=== PATIENT | female | born 1980 | race Asian ===

== ENCOUNTER 2018-04-04 10:22 | Inpatient (IN) | payer OTHER ==
--- NOTE | 2018-04-04 10:48 | HP ---
General Information - General Information Maternal Age: 37 Grav: 5 Para: 4 SAB: 0 IEA: 0 Estimated Due Date: 03/30/18 Determined By: Early Ultrasound - 2nd trimester Gestational Age in Weeks/Days: 40 w 5 d Maternal Blood Type and Rh: A Positive - Results this Serology/RPR Result: Non-Reactive Rubella Result: Immune HBsAg Result: Negative HIV Result: Negative GBS Culture Result: Positive - bacteruiria Past Medical History Delivery History: Hx Uncomplicated Vaginal Delivery Past Medical History Comment: varicose veins Pertinent Past Surgical History: None Pertinent Family History: Non-Contributory - Antepartal Records Antepartal Records: Reviewed, Complicated by: - advanced maternal age , GBS bacteriuria Review of Systems Constitutional: Uncomfortable CV Complaint: No Respiratory: Shortness of Breath: No Gastrointestinal: No Nausea/Vomiting Genitourinary: No Leaking Fluid Musculoskeletal: Contractions Neurological: No Headache, No Visual Changes Movement: Normal Exam Allergies/Adverse Reactions: Allergies No Known Allergies Allergy (Verified 04/04/18 09:56) - Measurements Height: 5 ft 4 in Weight: 162 lb Body Mass Index (BMI): 27.8 Pre- Weight: 134 lb - Exam Breast: - - soft, no masses Extremities: Edema - varciosities Heart: Normal Rhythm/Heart Sounds HEENT: No Significant Findings Reflexes: DTR 2+ Thyroid: No Thyromegaly Other Exam Findings: extensive R labial varicosity. Large abd diastasis - Abdominal Exam Abdomen Exam: Non-Tender - Ultrasound/Biophysical Profile Ultrasound Status: Not Done Targeted Exam Findings Estimated Weight: 8 lbs Cervical Exam: 8cm Effacement: 100% Presenting Part: Vertex Membrane Status: Bulging Bleeding/Discharge: None EFM Findings - External Monitor Findings Baseline Heart Rate: 130 External Monitor Findings: Accelerations Present, No Pattern of Variable or Late Decelerations, Variability Moderate External Monitor Findings Comment: category 1 Contractions: Regular, Moderate, 45-90 Seconds Contraction Frequency: every 4-5 minutes Assessment/Plan - Assessment active labor - Obstetrical Risk Factors Obstetrical Risk Factors: GBS Positive - Plan Plan: Admit - Anticipate Vaginal Delivery - will begin PCN prophylaxis - Date/Time of Admission Date of Admission: 04/04/18 Time of Admission: 10:30
[2018-04-04] MEDS ORDERED: Penicillin G Potassium IV* 5,000,000 UNITS in NS 0.9% 100 ML* 100 ML IVPB ONE (11:00)
[2018-04-04 11:07] LABS: ABS Basophils 0 10^3/ul (0-0.2); ABS Eosinophils 0 10^3/ul (0-0.6); ABS Lymphocytes 1.3 10^3/ul (1.0-4.8); ABS Monocytes 0.6 10^3/ul (0-0.8); ABS Neutrophils 7.6 10^3/ul (1.5-7.7); ABS Nucleated RBC 0 10^3/ul; Eosinophil % 0.3 % (0-6); Hematocrit 36 % (35-47); Hemoglobin 11.8 g/dl (12.0-16.0); Lymphocyte % 13.9 % (25-47); Mean Corpuscular HGB Conc 33 g/dl (31-36); Mean Corpuscular Hemoglobin 29 pg (27-31); Mean Corpuscular Volume 87 fL (80-97); Nucleated Red Blood Cells % 0.1; Platelet Count 206 10^3/ul (150-450); Red Cell Distribution Width 14 % (10.5-15); White Blood Count 9.7 10^3/ul (3.5-10.8)
[2018-04-04] MEDS ORDERED: OBEPIDURAL* 0 ML EPIDURAL ONE (11:13)
[2018-04-04] MEDS ORDERED: fentaNYL* 50 MCG/ML 2 ML VIAL (100 MCG VIAL) ONE (11:20)
--- NOTE | 2018-04-04 11:24 | PN ---
Progress Note - Progress Note Date of Service: 04/04/18 Note: feeling pressure. Cervix now anterior lip. Do not feel that will get 4 hr window after antibiotic so will do intrathecal instead, then expedite delivery with AROM when stable/comfortable
[2018-04-04] MEDS ORDERED: Sodium Citrate/Citric Acid* 15 ML UDC PO PRN (11:35)
[2018-04-04] MEDS ORDERED: Phenylephrine IV* 40 MCG/ML 10 ML SYRINGE IV PUSH PRN ×2 (11:35)
[2018-04-04] MEDS ORDERED: Famotidine TAB* 20 MG PO PRN (11:35)
[2018-04-04] MEDS ORDERED: EPHEDrine (Pressors)* 50 MG/ML VIAL IV PUSH PRN ×2 (11:35)
[2018-04-04] MEDS ORDERED: Oxytocin in LR* 20 UNITS/1,000 ML BAG IVPB ONE (12:33)
[2018-04-04] MEDS ORDERED: Lidocaine 1%* 5 ML VIAL ONE (12:42)
[2018-04-04] MEDS ORDERED: Acetaminophen TAB* 325 MG PO PRN (12:53)
[2018-04-04] MEDS ORDERED: Glycerin ADULT SUPP PR PRN (12:53)
[2018-04-04] MEDS ORDERED: Dibucaine 1% 28.35 GM TUBE PR PRN (12:53)
[2018-04-04] MEDS ORDERED: Misoprostol TAB* 200 MCG PR ONE (12:58)
[2018-04-04] MEDS ORDERED: Oxytocin in LR* 20 UNITS/1,000 ML BAG IVPB SCH (13:00)
[2018-04-04] MEDS ORDERED: Misoprostol TAB* 200 MCG ONE (13:01)
--- NOTE | 2018-04-04 13:07 | PROCNOTE ---
[facility] OB: Delivery Note - Delivery A Date of : 04/04/18 Time of : 12:29 [place] Sex: Female Score 1 Minute: 9 Score 5 Minutes: 10 Gestational Age in Weeks and Days at Delivery: 40 Weeks and 5 Days Delivery Method: Spontaneous Vaginal Labor: Spontaneous Amniotic Fluid: Clear Estimated Blood Loss: 300 Anesthesia/Analgesia: ITF/Spinal for Labor Anesthesia Comment: Dr. Prince Delivered By: Britni Partida - Nursery Level of Nursery: Regular/Bedside - Perineum Perineal Injury: 1st Degree - perineal Perineal Injury Comment: repaired with 3-0 and 4-0 ccg under 1% lidocaine Perineal Repair: By Delivering Practioner - Events Delivery Events of Note: Partial Course of Antibiotics - Additional Delivery Notes Additional Delivery Notes: SVB LFC, OA, over 1st deg perineal lac. pink with stimulation, vigorous cry. Placenta Della, intact. Fundus with massage. IV with pitocin running. After clots expressed with massage, Cytotec 800mcg pr given. EBL 300cc. Mother and baby in good condition
[2018-04-04] MEDS ORDERED: Ammonia Inhalant* 1 EA AMP ONE (15:19)
[2018-04-04] MEDS: Witch Hazel PAD* JAR TOPICAL PRN (15:40)
[2018-04-04] MEDS: Docusate CAP* 100 MG PO SCH ×2 (15:40→21:39)
[2018-04-04] MEDS: Ibuprofen TAB* 600 MG PO PRN ×2 (15:40→21:39)
[2018-04-04] MEDS: Penicillin G Potassium IV* 2,500,000 UNITS in NS 0.9% 100 ML* 100 ML IVPB SCH (19:19)
[2018-04-05] MEDS: Ibuprofen TAB* 600 MG PO PRN ×4 (04:05→23:56)
[2018-04-05 06:39] LABS: Hematocrit 31 % (35-47); Hemoglobin 10.2 g/dl (12.0-16.0); Mean Corpuscular HGB Conc 33 g/dl (31-36); Mean Corpuscular Hemoglobin 29 pg (27-31); Mean Corpuscular Volume 88 fL (80-97); Mean Platelet Volume 8.3 um3 (7.4-10.4); Platelet Count 165 10^3/ul (150-450); Red Blood Count 3.51 10^6/ul (4.00-5.40); Red Cell Distribution Width 15 % (10.5-15); White Blood Count 9.1 10^3/ul (3.5-10.8)
[2018-04-05] MEDS ORDERED: Ferrous Gluconate TAB* 324 MG TAB PO SCH (09:00)
[2018-04-05] MEDS: Docusate CAP* 100 MG PO SCH ×3 (09:00→23:56)
[2018-04-05] MEDS: Witch Hazel PAD* JAR TOPICAL PRN (14:16)
[2018-04-06 08:08] VITALS: BP 116/76
[2018-04-06] MEDS: Ibuprofen TAB* 600 MG PO PRN (08:25)
[2018-04-06] MEDS: Docusate CAP* 100 MG PO SCH (09:42)
== END 2018-04-06 11:05 | disposition home or self-care (01) | DRG 560 ==
LOC: MCHOBOUT 10:22 → MCHOB 10:35
PROVIDERS: ADMIT Midwife; ATTEND Midwife
PROC: 10907ZC Drainage of Amniotic Fluid, Therapeutic from Products of Conception, Via Natural or Artificial Opening (ICD-10-PCS; principal; 2018-04-04)
PROC: 4A1HXCZ Monitoring of Products of Conception, Cardiac Rate, External Approach (ICD-10-PCS; 2018-04-04)
PROC: 10E0XZZ Delivery of Products of Conception, External Approach (ICD-10-PCS; 2018-04-04)
PROC: 0HQ9XZZ Repair Perineum Skin, External Approach (ICD-10-PCS; 2018-04-04)
DX: O48.0 Post-term pregnancy (principal); Z37.0 Single live birth; O99.824 Streptococcus B carrier state complicating childbirth; O70.0 First degree perineal laceration during delivery; Z3A.40 40 weeks gestation of pregnancy
CPT/HCPCS: 36415; 85025; 85027; 86850; 86900; 86901; 90686; A9270-GY; J2540; J3010

== ENCOUNTER 2018-06-07 06:34 | Day surgery (SDC) | payer OTHER ==
[~2018-06-07 06:34] MED LIST: Buffered Lidocaine 0.9% SYRIN* 5 ML/SYR SYRINGE INTRADERM ONE; Famotidine IV* 10 MG/ML 2 ML (20 mg) IV ONE; Famotidine IV* 10 MG/ML 2 ML (20 mg) ONE; oxyCODONE SR TAB(*) 10 MG TAB.SR ONE
[2018-06-07 07:32] LABS: ABS Basophils 0 10^3/ul (0-0.2); ABS Eosinophils 0.1 10^3/ul (0-0.6); ABS Lymphocytes 1.3 10^3/ul (1.0-4.8); ABS Monocytes 0.4 10^3/ul (0-0.8); ABS Neutrophils 2.6 10^3/ul (1.5-7.7); ABS Nucleated RBC 0 10^3/ul; Eosinophil % 1.3 %; Hematocrit 37 % (35-47); Hemoglobin 12.3 g/dl (12.0-16.0); Lymphocyte % 29.8 %; Mean Corpuscular HGB Conc 33 g/dl (31-36); Mean Corpuscular Hemoglobin 29 pg (27-31); Mean Corpuscular Volume 87 fL (80-97); Mean Platelet Volume 8.4 fL (7.4-10.4); Nucleated Red Blood Cells % 0.1; Platelet Count 217 10^3/ul (150-450); Red Blood Count 4.26 10^6/ul (4.00-5.40); Red Cell Distribution Width 15 % (10.5-15); White Blood Count 4.4 10^3/ul (3.5-10.8)
[2018-06-07] MEDS ORDERED: Bupivacaine 0.25% SDV PF* 10 ML VIAL INJ ONE (08:23)
[2018-06-07] MEDS ORDERED: Bupivacaine 0.25% EPI 200,000* 30 ML SDV ONE (08:23)
[2018-06-07] MEDS ORDERED: fentaNYL* 50 MCG/ML 2 ML VIAL (100 MCG VIAL) ONE ×2 (08:32→10:22)
[2018-06-07] MEDS ORDERED: Cisatracurium* 2 MG/ML MDV 5 ML ONE (08:32)
[2018-06-07] MEDS ORDERED: Ketorolac INJ* 30 MG/ML 1 ML VIAL ONE (08:32)
[2018-06-07] MEDS ORDERED: Ondansetron INJ* 2 MG/ML VIAL ONE (08:32)
[2018-06-07] MEDS ORDERED: Propofol* 10 MG/ML 20 ML BTL ONE (08:32)
[2018-06-07] MEDS ORDERED: Lidocaine 2% PF * 5 ML VIAL ONE (08:32)
[2018-06-07] MEDS ORDERED: Dexamethasone IV* 4 MG/ML 1 ML (4 MG) ONE (08:32)
[2018-06-07] MEDS ORDERED: Midazolam* 1 MG/ML 5 ML VIAL (5 MG) ONE (08:32)
[2018-06-07] MEDS ORDERED: EPHEDrine (Pressors)* 50 MG/ML VIAL ONE (09:04)
[2018-06-07] MEDS ORDERED: HYDROmorphone INJ1* 1 MG/ML SYRINGE IV PRN (09:25)
[2018-06-07] MEDS ORDERED: Naloxone* 0.4 MG/ML 1 ML VIAL IV PRN (09:25)
[2018-06-07] MEDS ORDERED: Ondansetron INJ* 2 MG/ML VIAL IV PRN (09:25)
[2018-06-07] MEDS ORDERED: Neostigmine Methylsulfate* 1 MG/ML 10 ML VIAL (1 mg/ml) ONE (09:31)
[2018-06-07] MEDS ORDERED: Glycopyrrolate IV* 0.2 MG/ML 1 ML VIAL ONE (09:31)
[2018-06-07] MEDS ORDERED: Silver Nitrate/Potassium Nitr* 1 EA STICK ONE (09:40)
[2018-06-07] MEDS: fentaNYL* 50 MCG/ML 2 ML VIAL (100 MCG VIAL) IV PRN ×2 (10:24→10:39)
[2018-06-07] MEDS ORDERED: Morphine VIAL* 4 MG/ML VIAL (1 ml vial) ONE (10:41)
[2018-06-07] MEDS ORDERED: oxyCODONE SR TAB(*) 10 MG TAB.SR ONE (10:41)
[2018-06-07 11:27] VITALS: BP 132/78
--- NOTE | 2018-06-07 13:04 | OP ---
OPERATIVE REPORT: DATE OF OPERATION: 06/07/18 DATE OF : 78 SURGEON: Rod Macdonald MD. ANESTHESIOLOGIST: Dr. Schilling. ANESTHESIA: General. PRE-OP DIAGNOSIS: Satisfied parity. POST-OP DIAGNOSIS: Satisfied parity. OPERATIVE PROCEDURE: Laparoscopic bilateral tubal ligation using Filshie clips. ESTIMATED BLOOD LOSS: 30 cc. URINE OUTPUT: 200 cc. IV FLUIDS: 1900 cc Lactated Ringer's. MATERIALS TO LAB: None. INDICATIONS: This patient was a 37-year-old 5, para 5, who delivered a baby recently and desired to have permanent sterilization performed. She was extensively counseled and consent was signed. Her Medicaid consent was signed over 30 days earlier as well. FINDINGS: Normal-appearing pelvis with normal fallopian tubes and ovaries. Of note, the tenaculum site had fairly heavy bleeding initially, but this was controlled with pressure and silver nitrate on the cervix. COMPLICATIONS: None. DESCRIPTION OF PROCEDURE: The risks, benefits, and alternatives were described to the patient, and informed consent was obtained. The patient was taken to the operating room with IV running where general anesthesia was induced and found to be adequate. The patient was prepped and draped in normal-sterile fashion in the low lithotomy position in [facility]. A time-out was performed. The bladder was emptied. A bivalve speculum was placed in the vagina and a Hulka tenaculum was placed through the cervix into the uterus. The speculum was then removed. Attention was then turned to the abdomen. 0.25% Marcaine was then injected into the skin of the umbilicus as well as 2-cm above the pubic symphysis. A 5 mm skin incision was made with a scalpel in the umbilicus. A 5mm bladeless trocar was then inserted through the incision and into the peritoneal cavity without difficulty. The skin was elevated using penetrating towel clamps. Once the trocar was in the abdominal cavity, the abdomen was insufflated with carbon dioxide gas to a maximum pressure of 15 mmHg. Using the camera, the area below the trocar placement was carefully inspected and there was no evidence of trauma or bleeding. The patient was placed in Trendelenburg position. A second incision about 8 mm in length was placed 2 cm above the pubic symphysis in a transverse fashion. An 8-mm blunt trocar was also placed through this incision and into the abdominal cavity without difficulty. Using the Hulka tenaculum for manipulation, the uterus was elevated and well visualized. The structures appeared normal. Filshie clips were prepared. A Filshie clip was then placed on the patient's right fallopian tube in the mid isthmic portion without difficulty. The same was then performed on the patient's left side, again without difficulty and with excellent hemostasis. The case was then completed. The trocars were removed from the abdomen and the gas was allowed to escape. The skin was reapproximated using 4-0 Monocryl in a subcuticular stitch, and the incisions were then overlaid with Dermaflex skin adhesive. The tenaculum was then removed from the cervix as well, and there was initially persistent bleeding from the vagina at that time. A speculum was placed and after holding pressure with a sponge and then touching the tenaculum site with silver nitrate, the bleeding was minimal. The patient was returned to the supine position and allowed to awaken. The patient tolerated the procedure well. Sponge, lap, and needle counts were correct x2. [id number]/[facility] #: [id number] [facility]
== END 2018-06-07 11:29 | disposition home or self-care (01) ==
LOC: OR 06:34
PROVIDERS: ATTEND Obstetrics & Gynecology
DX: Z30.2 Encounter for sterilization (principal); D64.9 Anemia, unspecified
CPT/HCPCS: 36415; 81025; 85025; 86850; 86900; 86901; A9270-GY; J1100; J1885; J2250; J2270; J2405; J2704; J2710; J3010; J3490